=== PATIENT | female | born 1985 | race African-American/Black ===

== ENCOUNTER 2016-10-24 19:12 | Emergency (ER) | payer BC, OTHER ==
[~2016-10-24] VITALS: Ht 175.3 cm; Wt 155.6 kg
[2016-10-24 19:35] VITALS: BP 155/88
[2016-10-24 21:22] LABS: POTASSIUM ISTAT 3.6 mmol/L (3.5-5.0)
--- NOTE | 2016-10-24 21:30 | PHYS DOC ---
Past Medical History Past Medical History: No Pertinent History Past Surgical History: No Surgical History Alcohol Use: Occasionally Drug Use: None Adult General Chief Complaint Chief Complaint: VAGINAL BLEEDING HPI HPI 30-year-old female with a history of morbid obesity typically has normal menstrual cycles now presents to the emergency department complaining of bleeding slightly worse than her baseline. Patient took a home test that she thought it was faintly positive so she came to the emergency department for evaluation. Upon arrival her urine test was negative. Patient does report slightly increased bleeding compared with the typical. However she is not dizzy or having any symptoms of near syncope. She has no history of anemia or coagulopathy and she is not on any anticoagulants. No other vaginal discharge no abdominal or pelvic pain and no other complaints. Normal bowel and bladder habits Review of Systems Review of Systems Constitutional: Denies fever or chills [] Eyes: Denies change in visual acuity, redness, or eye pain [] HENT: Denies nasal congestion or sore throat [] Respiratory: Denies cough or shortness of breath [] Cardiovascular: No additional information not addressed in HPI [] GI: Denies abdominal pain, nausea, vomiting, bloody stools or diarrhea [] : Denies dysuria or hematuria [] Musculoskeletal: Denies back pain or joint pain [] Integument: Denies rash or skin lesions [] Neurologic: Denies headache, focal weakness or sensory changes [] Endocrine: Denies polyuria or polydipsia [] Allergies Allergies Allergies Coded Allergies Type Severity Reaction Last Updated Verified Latex, Natural Rubber Allergy Unknown 10/24/16 No Physical Exam Physical Exam Well-appearing patient no pallor smiling comfortable appearing. Benign abdomen external pelvic exam. Nurse present for internal pelvic exam. Normal external genitalia with no discharge except small amount of dark red blood oozing. Normal appearing cervix no active bleeding small amount of dark blood in the vault. No cervical motion tenderness no fundal or adnexal tenderness or mass. Other than bleeding benign exam Constitutional: Well developed, well nourished, no acute distress, non-toxic appearance. [] HENT: Normocephalic, atraumatic, bilateral external ears normal, oropharynx moist, no oral exudates, nose normal. [] Eyes: PERRLA, EOMI, conjunctiva normal, no discharge. [] Neck: Normal range of motion, no tenderness, supple, no stridor. [] Cardiovascular:Heart rate regular rhythm, no murmur [] Lungs & Thorax: Bilateral breath sounds clear to auscultation [] Abdomen: Bowel sounds normal, soft, no tenderness, no masses, no pulsatile masses. [] Skin: Warm, dry, no erythema, no rash. [] Back: No tenderness, no CVA tenderness. [] Extremities: No tenderness, no cyanosis, no clubbing, ROM intact, no edema. [] Neurologic: Alert and oriented X 3, normal motor function, normal sensory function, no focal deficits noted. [] Psychologic: Affect normal, judgement normal, mood normal. [] Current Patient Data Vital Signs Vital Signs Date Time Temp Pulse Resp B/P (MAP) Pulse Ox O2 Delivery O2 Flow Rate FiO2 10/24/16 21:00 76 98 Room Air 10/24/16 19:35 98.6 20 155/88 (110) 98.6 Lab Values Laboratory Tests Test 10/24/16 19:32 10/24/16 21:16 10/24/16 21:18 POC Urine HCG, Qualitative Hcg negative (Negative) Hcg negative (Negative) POC Hemoglobin 13.9 g/dL (12-15) POC Hematocrit 41 % (36-40) H POC Sodium 141 mmol/L (135-145) POC Potassium 3.6 mmol/L (3.5-5.0) POC Chloride 103 mmol/L (98-110) POC Total CO2 28 mmol/L (23-32) Anion Gap 15 mmol/L (6-14) H POC Blood Urea Nitrogen 14 mg/dL (8-26) POC Creatinine 0.8 mg/dL (0.5-1.4) Glucose Level 86 mg/dL (70-99) POC Ionized Calcium (Charmaine) 1.19 mmol/L (1.13-1.32) Laboratory Tests 10/24/16 21:16 EKG EKG [] Radiology/Procedures Radiology/Procedures [] Course & Med Decision Making Course & Med Decision Making Pertinent Labs and Imaging studies reviewed. (See chart for details) Signs and symptoms consistent with menorrhagia. Patient clinically stable and well-appearing. Hemoglobin unremarkable. No further workup or treatment indicated. She was verified as not in the emergency department here today. Patient were to follow up with PCP and [facility] doctor. She agrees with outpatient follow-up and strict return precautions given [] Azam Disclaimer Dragon Disclaimer This electronic medical record was generated, in whole or in part, using a voice recognition dictation system. Departure Departure Impression: Primary Impression: Menorrhagia Disposition: HOME, SELF-CARE Condition: GOOD Referrals: CHRISTIAN GÓMEZ (PCP) Patient Instructions: Menorrhagia, [id number] Additional Instructions: Your test was negative today. You are experiencing menorrhagia which means heavier than your typical menstrual cycle vaginal bleeding. Hemoglobin was normal today at 13.9 so you're not anemic. Rest and drink plenty of fluids and follow-up with your [facility] doctor in the next 1-2 days. Return immediately for new severe or worsening symptoms specifically for uncontrolled bleeding or fainting BOB MATHEWS MD Oct 24, 2016 21:30
== END 2016-10-24 21:38 | disposition home or self-care (01) ==
LOC: ER 19:12
DX: N92.0 Excessive and frequent menstruation with regular cycle (principal); E66.01 Morbid (severe) obesity due to excess calories; Z68.43 Body mass index [BMI] 50.0-59.9, adult; Z91.040 Latex allergy status
CPT/HCPCS: 36415; 80047; 81025; 99282